=== PATIENT | male | born 1990 | race Caucasian/White ===

== ENCOUNTER → 2017-03-22 | Outpatient (CLI) | payer OTHER ==
[~2017-03-22] MED LIST: AMOXICILLIN500 MG PO; AUGMENTIN 875875 MG PO; KEFLEX500 MG PO; MULTIVITAMIN1 SGL PO; NAPROSYN500 MG PO; VICODIN 500 MG-1 TAB PO
== END | disposition home or self-care (01) ==
LOC: RAD 08:35
DX: R05 Cough (principal)

== ENCOUNTER 2018-10-09 17:00 | Emergency (ER) | payer SELFPAY ==
[~2018-10-09] VITALS: Ht 190.5 cm; Wt 74.8 kg
[2018-10-09] MEDS ORDERED: ROBAXIN500 M1 PO (19:33)
[2018-10-09] MEDS ORDERED: IBUPROFEN600 MG PO (19:33)
== END 2018-10-09 19:38 | disposition home or self-care (01) ==
LOC: ED 17:00
DX: S16.1XXA Strain of muscle, fascia and tendon at neck level, initial encounter (principal); V49.9XXA Car occupant (driver) (passenger) injured in unspecified traffic accident, initial encounter; Y93.89 Activity, other specified; Y92.89 Other specified places as the place of occurrence of the external cause; Y99.8 Other external cause status

== ENCOUNTER 2020-06-18 17:43 | Emergency (ER) | payer SELFPAY ==
[~2020-06-18] VITALS: Ht 190.5 cm; Wt 74.8 kg
[~2020-06-18 17:43] MED LIST changes: +IBUPROFEN600 MG PO; +ROBAXIN500 M1 PO
[2020-06-18] MEDS ORDERED: TRAMADOL HCL50 MG PO (18:36)
[2020-06-18] MEDS ORDERED: CLINDAMYCIN HC300 MG PO (18:36)
== END 2020-06-18 18:48 | disposition home or self-care (01) ==
LOC: ED 17:43
DX: K02.9 Dental caries, unspecified (principal); F17.200 Nicotine dependence, unspecified, uncomplicated; Z79.899 Other long term (current) drug therapy

== ENCOUNTER 2020-09-24 13:12 | Emergency (ER) | payer OTHER ==
[~2020-09-24 13:12] MED LIST changes: +CLINDAMYCIN HC300 MG PO; +TRAMADOL HCL50 MG PO
[2020-09-24 14:19] LABS: BASO % 0.2 % (0.0-1.0); EOS # 0.1 10*3/uL (0.0-0.4); EOS % 1.1 % (1.0-4.0); HEMATOCRIT 41.1 % (42.0-52.0); LYMPH # 1.6 10*3/uL (1.3-4.4); LYMPH % 28.5 % (27.0-41.0); MEAN CELL VOLUME 88.4 fl (80.0-94.0); MEAN CORPUSCULAR HGB CONC 32.8 g/dl (33.0-37.0); MEAN PLATELET VOLUME 9.5 fl (9.6-12.3); MONO # 0.4 10*3/uL (0.1-1.0); NEUT # 3.4 10*3/uL (2.3-7.9); PLATELET COUNT AUTOMATED 257 10*3/uL (130-400); RED BLOOD COUNT 4.65 10*6/uL (4.50-5.90); WHITE BLOOD COUNT 5.4 10*3/uL (4.8-10.8)
[2020-09-24 14:35] LABS: ALBUMIN 4.2 gm/dl (3.1-4.5); ALKALINE PHOSPHATASE 62 U/L (45-117); BUN 8 mg/dl (7-24); CHLORIDE 109 mmol/L (98-107); CREATININE 0.92 mg/dL (0.70-1.30); POTASSIUM 4.8 mmol/L (3.5-5.1); SGOT/AST 14 IU/L (3-35); SGPT/ALT 24 U/L (12-78); SODIUM 142 mmol/L (136-145)
== END 2020-09-24 14:46 | disposition home or self-care (01) ==
LOC: ED 13:12
PROVIDERS: Nurse Practitioner Family
DX: K08.89 Other specified disorders of teeth and supporting structures (principal); R68.84 Jaw pain; Z79.899 Other long term (current) drug therapy; Z79.2 Long term (current) use of antibiotics

== ENCOUNTER → 2020-12-25 | Outpatient (CLI) | payer OTHER | END | disposition home or self-care (01) | LOC: COVID19 12:57 | PROVIDERS: ATTEND Internal Medicine | DX: Z11.52 Encounter for screening for COVID-19 (principal) ==

== ENCOUNTER 2023-10-27 15:30 | Emergency (ER) | payer OTHER ==
[~2023-10-27] VITALS: Wt 79.4 kg
== END 2023-10-27 21:03 | disposition left against medical advice (07) ==
LOC: ED 15:30
DX: R10.30 Lower abdominal pain, unspecified (principal); Z53.21 Procedure and treatment not carried out due to patient leaving prior to being seen by health care provider

== ENCOUNTER 2024-03-27 15:03 | Emergency (ER) | payer OTHER ==
[~2024-03-27] VITALS: Ht 190.5 cm; Wt 81.6 kg
[2024-03-27] MEDS ORDERED: Bacitracin Zinc 14 GM TUBE T ONE (15:20)
[2024-03-27] MEDS ORDERED: SILVER SULFADIAZINE 25 GM TUBE T ONE (15:20)
[2024-03-27 15:34] LABS: BASO % 0.1 % (0.0-1.0); EOS # 0.1 10*3/uL (0.0-0.4); EOS % 0.9 % (1.0-4.0); LYMPH % 24.9 % (27.0-41.0); MEAN CELL VOLUME 87.6 fl (80.0-94.0); MEAN PLATELET VOLUME 9.5 fl (9.6-12.3); MONO # 0.6 10*3/uL (0.1-1.0); MONO % 7.9 % (3.0-9.0); NEUT # 5.2 10*3/uL (2.3-7.9); NEUT % 65.9 % (47.0-73.0); PLATELET COUNT AUTOMATED 323 10*3/uL (130-400); RED BLOOD COUNT 5.25 10*6/uL (4.50-5.90); WHITE BLOOD COUNT 7.8 10*3/uL (4.8-10.8)
[2024-03-27] MEDS ORDERED: SODIUM CHLORIDE 0.9% 1,000 ML IV ONE (15:55)
[2024-03-27 15:57] LABS: ALKALINE PHOSPHATASE 74 U/L (46-116); BUN 6 mg/dl (9-23); CHLORIDE 104 mmol/L (98-107); CPK 166 U/L (34-171); POTASSIUM 3.7 mmol/L (3.4-5.1); SGPT/ALT 20 U/L (5-49); TOTAL PROTEIN 6.9 gm/dL (6.0-8.0)
[2024-03-27] MEDS ORDERED: BACITRACIN28.4 GM T (16:50)
[2024-03-27] MEDS ORDERED: SILVADENE20 GM T (16:50)
[2024-03-27] MEDS ORDERED: [UNRECOGNIZED DRUG - REMARK] T (16:50)
== END 2024-03-27 17:39 | disposition home or self-care (01) ==
LOC: ED 15:03
PROVIDERS: Internal Medicine
DX: T23.201A Burn of second degree of right hand, unspecified site, initial encounter (principal); T31.0 Burns involving less than 10% of body surface; X11.8XXA Contact with other hot tap-water, initial encounter; Y93.89 Activity, other specified; Y92.89 Other specified places as the place of occurrence of the external cause; Y99.8 Other external cause status

== ENCOUNTER → 2025-07-02 | Outpatient (CLI) | payer OTHER ==
[~2025-07-02] MED LIST changes: +BACITRACIN28.4 GM T; +SILVADENE20 GM T; +[UNRECOGNIZED DRUG - REMARK] T
== END | disposition home or self-care (01) ==
LOC: ORTHO 01:53
PROVIDERS: ATTEND Orthopaedic Surgery
DX: M25.511 Pain in right shoulder (principal)